=== PATIENT | female | born 1975 | race Caucasian/White ===

== ENCOUNTER 2016-12-30 10:21 | Emergency (ER) | payer SELFPAY ==
[2016-12-30] MEDS ORDERED: methylPREDNISolone SOD SUCC 125 MG/2 ML VIAL IVP ONE (10:58)
[2016-12-30] MEDS ORDERED: HALOPERIDOL LACTATE 5 MG/ML VIAL IM ONE (10:58)
[2016-12-30 10:59] VITALS: BP 108/76
[2016-12-30] MEDS ORDERED: HYOSCYAMINE SULFATE 0.125 MG TAB.SUBL SL ONE (11:01)
[2016-12-30] MEDS ORDERED: 0.9 % SODIUM CHLORIDE 1,000 ML IV SCH (11:30)
--- NOTE | 2016-12-30 16:52 | ED Physician Documentation ---
Abdominal Pain - HISTORIAN Historian: patient - HPI Stated Complaint: LLQ pain Chief Complaint: Abdominal Pain Onset: hours (8) Duration: sudden-onset Timing: still present Context: denies: out of country travel, bad food, recent trauma Severity: moderate Quality: cramping Front/Back of Body, Lg (Color): 1 - pain Associated Symptoms: other (burning with urination) Exacerbated by: nothing Relieved by: nothing Further Comments: no - ROS CONST: no problems GI/: other (kidney stones) CVS/RESP: none EYES/ENT: none MS/SKIN/LYMPH: none NEURO/PSYCH: none - SOCIAL HX Smoking History: non-smoker Alcohol Use: none Drug Use: none - FAMILY HX Family History: no significant history - PAST HX Past History: kidney stones Ischemic Bowel Risk Factors: none Other History: none Surgeries/Procedures: other (oophorectomy) Immunizations: referred to PCP Home Medications: Ambulatory Orders Medication Instructions Recorded Albuterol Sulfate [Proair HFA] 1 inh IH Q4 11/21/14 Allergies/Adverse Reactions: Allergies Allergy/AdvReac Type Severity Reaction Status Date / Time aspirin Allergy Verified 12/30/16 10:51 ketorolac tromethamine Allergy Verified 12/30/16 10:51 [From Toradol] metoclopramide HCl Allergy Verified 12/30/16 10:51 [From Reglan] ondansetron HCl Allergy Verified 12/30/16 10:51 [From Zofran (as hydrochloride)] - VITAL SIGNS Vital Signs: Vital Signs Temp Pulse Resp BP Pulse Ox 99.9 F H 97 H 20 108/76 98 12/30/16 10:21 12/30/16 10:21 12/30/16 10:21 12/30/16 10:21 12/30/16 10:21 - REVIEWED ASSESSMENTS Nursing Assessment Reviewed: Yes Vitals Reviewed: Yes Progress - Results/Orders Results/Orders: cbc, cmp, ua, amylase, pt/ptt/inr, ct abdomen/pelvis without contrast ordered - Progress Progress: Saline lock, haldol 10 mg im, hyosdcyamine 0.25 mg p.o., 125 mg solumedrol ordered, pt. left ama before any could be given Critical Care Note - Critical Care Note Total Time (mins): 0 ED Results Lab/Radiology - Lab Results Lab Results: pt. left ama before [id number] could be done - Radiology Radiology Impressions: pt. left ama before testing could be done - Orders Orders: ED Orders Category Date Time Status Place IV Lock 1T Care 12/30/16 10:58 Active AMYLASE Routine Lab 12/30/16 11:00 Ordered CBC/PLATELET/DIFF Routine Lab 12/30/16 11:00 Ordered CMP Routine Lab 12/30/16 11:00 Ordered PT-INR Routine Lab 12/30/16 Ordered URINALYSIS Routine Lab 12/30/16 11:00 Ordered 0.9 % Sodium Chloride [Normal Saline] 1,000 ml Med 12/30/16 11:30 Discontinued IV .Q1H Haloperidol Lactate [Haldol] Med 12/30/16 10:58 Discontinued 10 mg IM NOW ONE Hyoscyamine Sulfate [Oscimin Sl] Med 12/30/16 11:01 Discontinued 0.25 mg SL NOW ONE methylPREDNISolone SOD SUCC [Solu-MEDROL] Med 12/30/16 10:58 Discontinued 125 mg IVP NOW ONE Abdominal Pain Physical Exam - Physical Exam General Appearance: alert, moderate distress EENT: eye inspection normal, ENT inspection normal, pharynx normal, no signs of dehydration, DOROTHY NECK: normal inspection, thyroid normal, supple RESPIRATORY: no resp distress, chest non-tender, breath sounds normal CVS: reg rate & rhythm, heart sounds normal, equal pulses, no murmur ABDOMEN: soft, no organomegaly, normal bowel sounds, no distension, tenderness ( left upper quadrant), other (left flank tenderness) BACK: normal inspection, CVA tenderness (L) SKIN: warm/dry, normal color EXTREMITIES: non-tender, normal range of motion, no evidence of injury, no edema NEURO: oriented X3, CN's nml as tested, motor nml, sensation nml, mood/affect nml, cognition normal Vital Signs: Vital Signs Temp Pulse Resp BP Pulse Ox 99.9 F H 97 H 20 108/76 98 12/30/16 10:21 12/30/16 10:21 12/30/16 10:21 12/30/16 10:21 12/30/16 10:21 Discharge Clincal Impression: Abdominal pain Qualifiers: Abdominal location: left upper quadrant Qualified Code(s): R10.12 - Left upper quadrant pain Referrals: Primary Doctor,No [Primary Care Provider] - 2 Days Home Medications: Ambulatory Orders Albuterol Sulfate [Proair HFA] 1 inh IH Q4 11/21/14 Comments: Pt. refused care and signed out ama Condition: Stable Disposition: 07 AGAINST MEDICAL ADVICE Decision to Admit: NO Decision Time: 11:39
== END 2016-12-30 11:10 | disposition left against medical advice (07) ==
LOC: ED 10:21
DX: R10.12 Left upper quadrant pain (principal); Z53.21 Procedure and treatment not carried out due to patient leaving prior to being seen by health care provider
CPT/HCPCS: 99281; S1016